=== PATIENT | female | born 1975 | race Hispanic/Latino ===

== ENCOUNTER 2019-12-10 20:49 | Emergency (ER) | payer MEDICARE ==
--- NOTE | 2019-12-10 21:06 | Emergency Department Report ---
ED Psych HPI - General Stated Complaint: HEADACHES, HEARING VOICES Time Seen by Provider: 12/10/19 20:58 Source: patient, EMS Mode of arrival: Ambulatory Limitations: No Limitations - History of Present Illness Initial Comments: CC: "I just need to relax. I am thinking backwards." HPI: This is a 44-year-old female with history of hypothyroidism and being "mentally retarded" who presents with racing thoughts. She states that she formally took Risperdal. However she stopped taking this medication. She denies history of bipolar disorder and schizophrenia. She has been compliant with levothyroxine. She informed EMS that she was hearing voices. She has mild nondescript headache. She has had similar headache. Throbbing frontal headache. She denies blurry vision. Denies vomiting. She denies fever. She currently resides at the [facility]. She denies suicidal or homicidal ideation. Complaint: other (Hearing voices) -: unknown Associated Psychiatric Symptoms: auditory hallucinations Quality: constant Improves With: none Worsens With: none Context: not taking psychiatric Associated Symptoms: headache Treatments Prior to Arrival: other (Transport via EMS) - Related Data Allergies Allergy/AdvReac Type Severity Reaction Status Date / Time codeine Allergy Swelling Verified 12/10/19 21:14 Penicillins Allergy Swelling Verified 12/10/19 21:14 ED Review of Systems ROS: Stated complaint: HEADACHES, HEARING VOICES Other details as noted in HPI Comment: All other systems reviewed and negative Constitutional: denies: fever, malaise Respiratory: denies: cough, shortness of breath Cardiovascular: denies: chest pain Gastrointestinal: denies: abdominal pain, nausea Neurological: headache Psychiatric: auditory hallucinations. denies: visual hallucinations, homicidal thoughts, suicidal thoughts ED Past Medical Hx - Past Medical History Previous Medical History?: Yes Additional medical history: Thyroid disease, cognitive intellectual delay - Social History Smoking Status: Current Every Day Smoker Substance Use Type: None ED Physical Exam - General General appearance: alert, in no apparent distress, other (Speaking to someone not present, responding to internal stimuli) - Head Head exam: Present: atraumatic, normocephalic - Eye Eye exam: Present: normal appearance - ENT ENT exam: Present: mucous membranes moist - Neck Neck exam: Present: normal inspection, full ROM - Respiratory Respiratory exam: Present: normal lung sounds bilaterally. Absent: respiratory distress, wheezes, rales, rhonchi - Cardiovascular Cardiovascular Exam: Present: regular rate, normal rhythm, normal heart sounds. Absent: systolic murmur, diastolic murmur, rubs, gallop - GI/Abdominal GI/Abdominal exam: Present: soft, normal bowel sounds. Absent: distended, tenderness, guarding, rebound - Extremities Exam Extremities exam: Present: normal inspection - Back Exam Back exam: Present: normal inspection - Neurological Exam Neurological exam: Present: alert, oriented X3 - Psychiatric Psychiatric exam: Present: depressed, flat affect, other (Speaking to persons who are not present but directable will answer questions will make eye contact) - Skin Skin exam: Present: warm, dry, intact, normal color. Absent: rash ED Course Vital Signs 12/10/19 12/10/19 12/11/19 20:54 23:05 00:11 Temperature 98.3 F 98.0 F Pulse Rate 98 H 94 H Respiratory 18 18 20 Rate Blood Pressure 125/83 119/69 Blood Pressure [Left] O2 Sat by Pulse 96 98 Oximetry 12/11/19 12/11/19 12/11/19 09:10 09:14 19:00 Temperature 98.0 F 98.0 F 97.6 F Pulse Rate 111 H 104 H Respiratory 18 18 18 Rate Blood Pressure Blood Pressure 116/77 116/77 132/90 [Left] O2 Sat by Pulse 97 96 100 Oximetry ED Medical Decision Making - Lab Data Result diagrams: 12/10/19 21:09 12/10/19 21:09 - Medical Decision Making 1. Auditory hallucinations, patient reported to EMS that she was hearing voices, it appears that she has taken Risperdal in the past. She states that she does not have bipolar disorder or schizophrenia. She states that she is "mildly retarded". She appears to be responding to internal stimuli. However she is immediately directable. She will answer questions. She is medically clear for psychiatric care. Our mental health cad intern recommended 1013 involuntary hold protocol due to acute psychosis. Our mental health cad intern spoke with brother who confirmed that she had previous history of psychosis. She has had previous "psychotic breaks". He also stated that his sister has not been compliant with risperidone. She has also been lost to follow-up for psychiatric care. 2. Headache: Patient denied headache on my evaluation. I suspect tension headache. No red flags such as sudden onset, fever, neurological deficits to indicate dangerous emergent condition. No further investigation necessary at this time. I have reviewed labs obtained. CBC chemistry TSH urinalysis UDS all within normal limits. Patient will be transferred to [facility] facility. Critical care attestation.: If time is entered above; I have spent that time in minutes in the direct care of this critically ill patient, excluding procedure time. ED Disposition Clinical Impression: Acute psychosis Disposition: [id number]/TX-70 ANOTHER TYPE HLTHCARE Is pt being admited?: No Does the pt Need Aspirin: No Condition: Stable
[2019-12-10 21:38] LABS: Bilirubin,Urine NEG (Negative); Blood,Urine NEG (Negative); Color,Urine Yellow (Yellow); Mucus,Urine 3+ /HPF; Urobilinogen,Urine < 2.0 mg/dL (<2.0)
[2019-12-10 21:38] LABS: Basophils % (Auto) 0.7 % (0.0-1.8); Eosinophils % (Auto) 0.2 % (0.0-4.3); Hematocrit 39.1 % (30.3-42.9); Hemoglobin 13.1 gm/dl (10.1-14.3); Lymphocytes # (Auto) 1.8 K/mm3 (1.2-5.4); Lymphocytes % (Auto) 27.1 % (13.4-35.0); Mean Corpuscular HGB Conc 34 % (30-34); Mean Corpuscular Volume 95 fl (79-97); Monocytes # (Auto) 0.5 K/mm3 (0.0-0.8); Monocytes % (Auto) 7.9 % (0.0-7.3); Platelet Count 220 K/mm3 (140-440); Red Blood Count 4.13 M/mm3 (3.65-5.03); Red Cell Distribution Width 14.3 % (13.2-15.2)
[2019-12-10 21:40] LABS: Amphetamine Screen,Urine PRESUMPTIVE NEGATIVE; Benzodiazepines Screen,Urine PRESUMPTIVE NEGATIVE; Cannabinoid Screen,Urine PRESUMPTIVE NEGATIVE; Cocaine Screen,Urine PRESUMPTIVE NEGATIVE; Methadone Screen,Urine PRESUMPTIVE NEGATIVE; Opiate Screen,Urine PRESUMPTIVE NEGATIVE
[2019-12-10 22:00] LABS: Alanine Aminotransferase 11 units/L (7-56); Albumin 4.4 g/dL (3.9-5); Blood Urea Nitrogen 22 mg/dL (7-17); Calcium 9.5 mg/dL (8.4-10.2); Hemolysis Index 4
[2019-12-10 22:12] LABS: BUN/Creatinine Ratio 44
[2019-12-11] MEDS ORDERED: ZIPRASIDONE MESYLATE 20 MG VIAL IM ONE (01:05)
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
[2019-12-11 20:18] VITALS: BP 132/90
[2019-12-12] MEDS ORDERED: ZIPRASIDONE MESYLATE 20 MG VIAL IM ONE ×2 (00:29→00:32)
[2019-12-12] MEDS ORDERED: WATER FOR INJ Sterile (PF) 10 ML ONE (00:32)
== END 2019-12-12 02:28 | disposition other institution (70) ==
LOC: EEVIPCON 20:49 → ED 20:49
DX: F23 Brief psychotic disorder (principal); F17.200 Nicotine dependence, unspecified, uncomplicated; Z88.4 Allergy status to anesthetic agent; Z88.0 Allergy status to penicillin
CPT/HCPCS: 36415; 80053; 80307; 81001; 84443; 84703; 85025; 96372; 99284; J3486; 80320; G0480

== ENCOUNTER 2020-02-09 10:08 | Emergency (ER) | payer MEDICARE ==
[2020-02-09 10:16] VITALS: BP 112/73
--- NOTE | 2020-02-09 10:58 | Emergency Department Report ---
ED Extremity Problem HPI - General Chief complaint: Extremity Injury, Lower Stated complaint: SWELLING IN LEGS Time Seen by Provider: 02/09/20 10:50 Source: patient Mode of arrival: Ambulatory Limitations: No Limitations - History of Present Illness Initial comments: 45-year-old female with history of cognitive delay, thyroid disease, presents to ED with complaint of lower extremity swelling. Patient states she noticed it on yesterday. Was unsure if it may be due to the salt intake. Patient denies any pain in the legs. She denies any chest pain or shortness of breath. MD Complaint: extremity swelling -: days(s) (2) Location: bilateral lower extremity Consistency: constant Improves with: nothing Worsens with: nothing Associated Symptoms: denies: chest pain, shortness of breath, fever - Related Data Allergies Allergy/AdvReac Type Severity Reaction Status Date / Time codeine Allergy Swelling Verified 02/09/20 10:10 Penicillins Allergy Swelling Verified 02/09/20 10:10 ED Review of Systems ROS: Stated complaint: SWELLING IN LEGS Other details as noted in HPI Comment: All other systems reviewed and negative Constitutional: denies: chills, fever Respiratory: denies: shortness of breath Cardiovascular: denies: chest pain Musculoskeletal: as per HPI ED Past Medical Hx - Past Medical History Hx Psychiatric Treatment: Yes (depression) Hx Asthma: Yes Additional medical history: Thyroid disease, cognitive intellectual delay - Surgical History Additional Surgical History: carpal tunnel - Social History Smoking Status: Never Smoker Substance Use Type: None ED Physical Exam - General Limitations: No Limitations General appearance: alert, in no apparent distress - Head Head exam: Present: atraumatic, normocephalic - Eye Eye exam: Present: normal appearance, EOMI - ENT ENT exam: Present: mucous membranes moist - Neck Neck exam: Present: normal inspection - Respiratory Respiratory exam: Present: normal lung sounds bilaterally. Absent: respiratory distress - Cardiovascular Cardiovascular Exam: Present: regular rate, normal rhythm - GI/Abdominal GI/Abdominal exam: Present: soft. Absent: distended, tenderness - Extremities Exam Extremities exam: Present: other (Trace edema to bilateral lower legs). Absent: calf tenderness - Neurological Exam Neurological exam: Present: alert, oriented X3 - Psychiatric Psychiatric exam: Present: normal affect, normal mood - Skin Skin exam: Present: warm, dry, intact, normal color ED Course Vital Signs 02/09/20 10:11 Temperature 98.1 F Pulse Rate 90 Respiratory 20 Rate Blood Pressure 112/73 O2 Sat by Pulse 100 Oximetry ED Medical Decision Making - Lab Data Result diagrams: 02/09/20 10:47 02/09/20 10:47 - Medical Decision Making 45-year-old female with trace edema to bilateral lower legs. No palpable cords, no calf tenderness. She denies any chest pain or shortness of breath. Vitals are normal. Labs are unremarkable. Patient advised to keep legs elevated. Outpatient follow-up advised. Return precautions given. - Differential Diagnosis Peripheral edema, liver failure, heart failure Critical care attestation.: If time is entered above; I have spent that time in minutes in the direct care of this critically ill patient, excluding procedure time. ED Disposition Clinical Impression: Bilateral lower extremity edema Disposition: - TO HOME OR SELFCARE Is pt being admited?: No Condition: Stable Instructions: Peripheral Edema Referrals: PRIMARY CARE, [Primary Care Provider] - 3-5 Days Time of Disposition: 12:03
[2020-02-09 11:34] LABS: Basophils % (Auto) 0.6 % (0.0-1.8); Eosinophils % (Auto) 0.6 % (0.0-4.3); Hematocrit 41.1 % (30.3-42.9); Hemoglobin 13.7 gm/dl (10.1-14.3); Lymphocytes # (Auto) 1.6 K/mm3 (1.2-5.4); Lymphocytes % (Auto) 29.9 % (13.4-35.0); Mean Corpuscular HGB Conc 33 % (30-34); Mean Corpuscular Volume 97 fl (79-97); Monocytes # (Auto) 0.3 K/mm3 (0.0-0.8); Monocytes % (Auto) 5.3 % (0.0-7.3); Platelet Count 153 K/mm3 (140-440); Red Blood Count 4.24 M/mm3 (3.65-5.03); Red Cell Distribution Width 14.2 % (13.2-15.2)
[2020-02-09 11:41] LABS: Alanine Aminotransferase 13 units/L (7-56); Albumin 3.9 g/dL (3.9-5); Blood Urea Nitrogen 14 mg/dL (7-17); Hemolysis Index 6
[2020-02-09 11:44] LABS: BUN/Creatinine Ratio 23
== END 2020-02-09 12:40 | disposition home or self-care (01) ==
LOC: ED 10:08
DX: R60.9 Edema, unspecified (principal); F32.9 Major depressive disorder, single episode, unspecified; J45.909 Unspecified asthma, uncomplicated; Z98.890 Other specified postprocedural states; Z88.0 Allergy status to penicillin; Z88.8 Allergy status to other drugs, medicaments and biological substances
CPT/HCPCS: 36415; 80053; 83880; 84703; 85025